=== PATIENT | female | born 1970 | race Caucasian/White ===

== ENCOUNTER 2020-12-09 06:48 | Observation (INO) | payer BC, SELFPAY ==
[2020-12-09] VITALS (18 sets, daily range): BP systolic 122–140; BP diastolic 73–87; PULSE 63–94; RESP 14–22; TEMP 36.6–37.3; O2SAT 93–99; BMI 26.6
--- NOTE | ~2020-12-09 | CT_ITS ---
EXAMINATION: CT abdomen pelvis w con DATE: 12/09/2020 08:40 INDICATION: Epigastric abdominal pain. TECHNIQUE: Computed tomography (CT) of the abdomen and pelvis was performed with 100 mL Omnipaque 350 intravenous contrast. Automated exposure control and iterative reconstruction technique were employe d. The dose-length product was 726.89 mGy-cm. COMPARISON: None. FINDINGS: The visualized portions of the lung bases demonstrate minimal atelectasis. No pleural effus ion. The heart size is normal. No pericardial effusion. The liver is normal. The gallbladder is diste nded with a gallstone in the gallbladder neck and wall thickening, consistent with acute cholecystiti s. The spleen, pancreas, adrenal glands, and kidneys are normal. There are no dilated loops of bowel. The appendix is normal. There is physiologic fluid in the pelvis. There is severe lower lumbar spond ylosis. Lumbar levoscoliosis is noted. IMPRESSION: 1. Acute cholecystitis. Reviewed, dictated and finalized at location A. IMPRESSION: 1. Acute cholecystitis.
--- NOTE | ~2020-12-09 | XR_ITS ---
EXAMINATION: XR cholangiogram surg 1st inj DATE: 12/09/2020 16:49 INDICATION: Intraoperative laparoscopic cholecystectomy TECHNIQUE: 46 fluoroscopic images of the right upper quadrant were obtained during intraoperative cho langiography performed by the surgeon. I was not present in the operating room. Fluoroscopy exposure time was 24.6 seconds. COMPARISON: None. FINDINGS: No biliary stones or stricture are identified. IMPRESSION: 1. No biliary stones or stricture identified. This was communicated to Dr. Nagy in the operating r oom at 1643 hours on 12/09/2020. Reviewed, dictated and finalized at location B. IMPRESSION: 1. No biliary stones or stricture identified. This was communicated to Dr. Jagdish melissa in the operating room at 1643 hours on 12/09/2020.
[2020-12-09 07:40] LABS: Basophils Percent Auto 0.2 % (0.2-1.2); Hematocrit 41.5 % (37.0-47.0); Hemoglobin 13.7 g/dL (12.0-15.0); Immature Granulocyte Absolute 0.07 K/mm3 (0.00-0.031); Immature Granulocyte Percent A 0.4 % (0-0.5); Lymphocytes Absolute Auto 0.79 K/mm3 (0.9-3.2); Lymphocytes Percent Auto 4.6 % (18.3-44.2); Mean Corpuscular Hemoglobin 30.6 pg (26-34); Mean Corpuscular Volume 92.6 fl (80-100); Mean Platelet Volume 10.2 fl (7.4-10.4); Monocytes Absolute Auto 0.9 K/mm3 (0.1-0.6); Neutrophils Absolute Auto 15.4 K/mm3 (1.3-6.7); Neutrophils Percent Auto 89.8 % (45.5-73.1); Platelet Count Result 385 k/mm3 (150-375); Red Blood Count 4.48 M/mm3 (4.2-5.4); Red Cell Distribution Width 13.6 % (11.5-14.5); White Blood Count 17.1 K/mm3 (4.5-10.0)
--- NOTE | 2020-12-09 07:43 | ED.NAVMDI ---
HPI - Nausea/Vomiting/Diarrhea General Chief complaint: Nausea/Vomiting/Diarrhea Stated complaint: vomiting Time Seen by Provider: 12/09/20 06:59 History of Present Illness HPI Narrative: Patient is a 50-year-old female who presents ER with nausea and vomiting. Ongoing for 24 hours. Associated with epigastric fullness and bloating. No heartburn. Denies diarrhea. Worsened by eating. No alleviating factors. Radiates to her left back on occasion. No known sick contacts. Related Data Home Medications Medication Instructions Recorded Confirmed No Home Medications 12/09/20 12/09/20 Allergies Allergy/AdvReac Type Severity Reaction Status Date / Time ibuprofen Allergy Swelling Verified 12/09/20 07:19 Review of Systems Review of Systems: All systems reviewed & are unremarkable except as noted in HPI and below Constitutional: Constitutional: Denies chills, Denies fever(s) and Denies weakness ENT: Denies nasal congestion and Denies sore throat Gastrointestinal: Gastrointestinal: Reports abdominal pain, Reports bloating, Denies constipation, Denies heartburn, Denies diarrhea, Reports nausea and Reports vomiting Genitourinary: Genitourinary: Denies dysuria, Reports flank pain and Denies urinary incontinence PMF Past Medical History Medical History (Updated 12/09/20 @ 09:36 by Jose C Yost MD) Healthy female adult Surgical History Surgical History (Updated 12/09/20 @ 07:44 by Jose C Yost MD) History of tonsillectomy Exam Narrative: Exam Narrative: GENERAL: Well-appearing, well-nourished, and in no acute distress. HEAD: Normocephalic, atraumatic. ENT: Mucous membranes moist. CHEST: Clear to auscultation. No respiratory distress. HEART: Regular rate and rhythm. Normal peripheral pulses. ABDOMEN: Soft, mild tenderness palpation right upper quadrant without guarding, nondistended, normal active bowel sounds. EXTREMITIES: Normal range of motion. No edema. SKIN: Warm, dry, no rash. NEURO: Alert and oriented x3. PSYCH: Normal mood and affect. Course Course Emergency Course: Patient informed of results and treatment plan. Admit to Dr. Nagy. N.p.o. with IV antibiotics and pain/nausea control. Vital Signs Vital signs: Vital Signs Temperature 98.7 F 12/09/20 06:55 Pulse Rate 87 12/09/20 06:55 Respiratory Rate 18 06/29/21 06:55 Blood Pressure 134/86 12/09/20 06:55 Pulse Oximetry 98 12/09/20 06:55 Temperature 98.7 F 12/09/20 06:55 Pulse Rate 93 12/09/20 08:21 Respiratory Rate 16 12/09/20 08:21 Blood Pressure 130/81 12/09/20 08:21 Pulse Oximetry 98 12/09/20 08:21 MDM - Nausea/Vomiting/Diarrhea Lab Data Result diagrams: 12/09/20 07:22 12/09/20 07:22 Labs: Lab Results 12/09/20 12/09/20 12/09/20 Range/Units 07:22 07:22 07:27 WBC 17.1 H (4.5-10.0) K/mm3 RBC 4.48 (4.2-5.4) M/mm3 Hgb 13.7 (12.0-15.0) g/dL Hct 41.5 (37.0-47.0) % MCV 92.6 (80-100) fl MCH 30.6 (26-34) pg MCHC 33.0 (32-36) g/dl RDW 13.6 (11.5-14.5) % Plt Count 385 H (150-375) k/mm3 MPV 10.2 (7.4-10.4) fl Immature Gran % (Auto) 0.4 (0-0.5) % Neut % (Auto) 89.8 H (45.5-73.1) % Lymph % (Auto) 4.6 L (18.3-44.2) % [place] % (Auto) 5.0 (2.6-8.5) % Eos % (Auto) 0.0 (0-4.4) % Baso % (Auto) 0.2 (0.2-1.2) % Lymph # (Auto) 0.79 L (0.9-3.2) K/mm3 [place] # (Auto) 0.9 H (0.1-0.6) K/mm3 Eos # (Auto) 0.0 (0-0.3) K/mm3 Baso # (Auto) 0.0 (0.0-0.1) K/mm3 Abs Immat Gran (auto) 0.07 H (0.00-0.031) K/mm3 Absolute Neuts (auto) 15.4 H (1.3-6.7) K/mm3 Absolute Nucleated RBC 0.0 (0.0-0.012) K/mm3 Nucleated RBC % 0.0 (0.0-0.2) % Sodium 140 (137-145) mmol/L Potassium 3.5 (3.4-5.0) mmol/L Chloride 104 (98-107) mmol/L Carbon Dioxide 25 (22-30) mmol/L Anion Gap 11 (8-16) mmol/L BUN 8 (7-17) mg/dL Creatinine 0.60 L (0.7-1.0) mg/dL
[2020-12-09 07:44] LABS: Alanine Aminotransferase 31 U/L (4-35); Albumin Level 4.4 g/dL (3.5-5.1); Alkaline Phosphatase 84 U/L (38-126); Anion Gap 11 mmol/L (8-16); Aspartate Amino Transferase 34 U/L (14-36); Bilirubin,Total 0.8 mg/dL (0.2-1.3); Blood Urea Nitrogen 8 mg/dL (7-17); Calcium 9.2 mg/dL (8.4-10.2); Carbon Dioxide 25 mmol/L (22-30); Chloride 104 mmol/L (98-107); Estimated CRCL calculation 102 ml/min; Estimated Glomerular Filt Rate > 60; Glucose 129 mg/dL (65-105); Lipase 223 U/L (23-300); Potassium 3.5 mmol/L (3.4-5.0); Sodium 140 mmol/L (137-145)
[2020-12-09] MEDS: SODIUM CHLORIDE 0.9% IV 1,000 ML 999 ML IV CONT (07:50)
[2020-12-09 07:56] LABS: Add Urine Microscopic? YES; Appearance Urine Cloudy (Clear); Bacteria Urine Trace /hpf; Bilirubin Urine Negative (Negative); Color Urine Amber (Yellow); Glucose Urine UA Negative (Negative); Ketones Urine Trace mg/dL (Negative); Leukocyte Esterase Ur Negative LEU/UL (Negative); Mucus Urine Heavy /lpf; Nitrate Urine Negative (Negative); Protein Urine 2+ mg/dL (Negative); Squamous Epithelial Cell Urine Many /hpf (Few); Urobilinogen Urine Negative mg/dL (<2.0)
[2020-12-09 07:58] LABS: Blood Urine Negative (Negative); Specific Grav Ur 1.031 (1.001-1.035)
[2020-12-09] MEDS: MORPHINE SULFATE (*CRX) 4 MG/ML INJ IV PUSH (10:27)
--- NOTE | 2020-12-09 11:10 | PM.IMHP ---
H&P: HPI History of Present Illness Date/Time: 12/09/20 11:10 Chief Complaint: Abdominal pain and vomiting Narrative: This is a 50-year-old female who is otherwise healthy, who presented to the ER with complaints of abdominal pain and vomiting. 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 She ate beefaroni from a can. About 1-2 hours after eating, she developed abdominal bloating and upper abdominal discomfort in the epigastric area and right upper quadrant. She then had an episode of vomiting later in the morning and decided to go home from work. Her abdominal pain progressively worsened and radiated to her mid back. She felt that her abdominal pain was worse in the upper abdomen but also radiated throughout her entire abdomen. She had another episode of vomiting and did not eat the remainder of the day. Her symptoms persisted through the night, therefore she presented to the ER today for evaluation. CT scan of the abdomen and pelvis showed gallbadder distention and wall thickening with a gallstone in the neck of the gallbladder, consistent with acute cholecystitis. Labs showed a white blood cell count of 17,100, normal LFTs, and normal lipase. Our service was consulted by the ER provider for surgical evaluation of acute cholecystitis. The patient is now seen in the ER. She reports her pain has improved with the IV Morphine that was just given to her prior to my arrival. Denies fever or chills. Reports loose stool, but normal in color. Denies any urinary complaints. No other complaints at this time. Upon further questioning, she has had similar abdominal pain on about 2-3 other occasions over the past 5-6 years that was more mild and resolved spontaneously after about 12 hours. Review of Systems Review of Systems: All systems reviewed & are unremarkable except as noted in HPI and below Constitutional: Constitutional: Reports as per HPI, Denies chills, Denies fatigue and Denies fever(s) ENT: Reports system reviewed and no additional complaints, except as documented and Reports Normal hearing present Cardiovascular: Cardiovascular: Reports no additional cardiovascular complaints, Denies chest pain and Denies leg edema Respiratory: Respiratory: Reports no additional respiratory complaints, Denies cough and Denies dyspnea Gastrointestinal: Gastrointestinal: Reports as per HPI, Reports no additional gastrointestinal complaints, Reports abdominal pain, Denies melena, Denies hematochezia, Denies coffee ground emesis, Denies constipation, Denies diarrhea, Reports loose stools, Reports nausea, Reports vomiting and Denies hematemesis Genitourinary: Genitourinary: Denies hematuria, Denies nocturia, Denies dysuria and Denies urinary urgency Musculoskeletal: Musculoskeletal: Denies abnormal gait, Denies deformity and Denies joint swelling Integumentary/Breasts: Skin/Breast: Denies wounds and Denies jaundice Neurologic: Reports system reviewed and no additional complaints, except as documented, Denies dizziness, Denies focal weakness, Denies numbness and Denies tingling Psychiatric: Psychiatric: Denies anxiety and Denies depression [facility] Past Medical History Medical History Healthy female adult Surgical History Surgical History History of tonsillectomy Family History Family History Mother Gallbladder disease Social History Social History Social History: She wishes to be a full code. She designates her , Don, to be her medical decision-maker if needed. Smoking packs per day: 1 Smoking cigarettes per day: 20.0 Years smoked: 20 Smoking pack-years: 20.00 Smoking status: Former smoker Tobacco type: cigarettes Second hand tobacco smoke exposure: No Alcohol use d
[2020-12-09] MEDS: SODIUM CHLORIDE 0.9% IV 1,000 ML 125 ML IV CONT (11:16)
--- NOTE | 2020-12-09 13:45 | PC.NURSE ---
To OR per bed, IV none. Report given to RN.
--- NOTE | 2020-12-09 14:32 | WPDANESEPPF ---
Anes - Initial Pre Proc Eval Procedure: Operation Date: 12/09/20 15:00 Proposed Procedures p Laparoscopic Cholecystectomy,Possible Intraoperative Cholangiograms,Possible Open - Thaddeus Nagy MD Date/Time: 12/09/20 14:32 Surgeon: Thaddeus Ngay MD Pre Op Diagnosis: cholecystitis Patient Data Age: 50 Gender: F Height: 1.75 m Weight: 82 kg Last Vital Signs Temp 37.2 C 12/09/20 11:00 Pulse 73 12/09/20 11:00 Resp 18 12/09/20 11:00 BP 140/87 12/09/20 11:00 Pulse Ox 95 12/09/20 11:00 Allergies Allergy/AdvReac Type Severity Reaction Status Date / Time ibuprofen Allergy Swelling Verified 12/09/20 11:04 Home Medications Medication Instructions Recorded Confirmed Type No Home Medications 12/09/20 12/09/20 History Laboratory Tests 12/09/20 12/09/20 12/09/20 07:22 07:22 07:27 WBC 17.1 K/mm3 H K/mm3 (4.5-10.0) RBC 4.48 M/mm3 M/mm3 (4.2-5.4) Hgb 13.7 g/dL g/dL (12.0-15.0) Hct 41.5 % % (37.0-47.0) MCV 92.6 fl fl (80-100) MCH 30.6 pg pg (26-34) MCHC 33.0 g/dl g/dl (32-36) RDW 13.6 % % (11.5-14.5) Plt Count 385 k/mm3 H k/mm3 (150-375) MPV 10.2 fl fl (7.4-10.4) Immature Gran % (Auto) 0.4 % % (0-0.5) Neut % (Auto) 89.8 % H % (45.5-73.1) Lymph % (Auto) 4.6 % L % (18.3-44.2) [place] % (Auto) 5.0 % % (2.6-8.5) Eos % (Auto) 0.0 % % (0-4.4) Baso % (Auto) 0.2 % % (0.2-1.2) Lymph # (Auto) 0.79 K/mm3 L K/mm3 (0.9-3.2) [place] # (Auto) 0.9 K/mm3 H K/mm3 (0.1-0.6) Eos # (Auto) 0.0 K/mm3 K/mm3 (0-0.3) Baso # (Auto) 0.0 K/mm3 K/mm3 (0.0-0.1) Abs Immat Gran (auto) 0.07 K/mm3 H K/mm3 (0.00-0.031) Absolute Neuts (auto) 15.4 K/mm3 H K/mm3 (1.3-6.7) Absolute Nucleated RBC 0.0 K/mm3 K/mm3 (0.0-0.012) Nucleated RBC % 0.0 % % (0.0-0.2) Sodium 140 mmol/L mmol/L (137-145) Potassium 3.5 mmol/L mmol/L (3.4-5.0) Chloride 104 mmol/L mmol/L (98-107) Carbon Dioxide 25 mmol/L mmol/L (22-30) Anion Gap 11 mmol/L mmol/L (8-16) BUN 8 mg/dL mg/dL (7-17) Creatinine 0.60 mg/dL L mg/dL (0.7-1.0) Estim Creat Clear Calc 102 ml/min ml/min Estimated GFR > 60 (59 - ) Glucose 129 mg/dL H mg/dL (65-105) Calcium 9.2 mg/dL mg/dL (8.4-10.2) Total Bilirubin 0.8 mg/dL mg/dL (0.2-1.3) AST 34 U/L U/L (14-36) ALT 31 U/L U/L (4-35) Alkaline Phosphatase 84 U/L U/L (38-126) Total Protein 8.0 g/dL g/dL (6.3-8.2) Albumin 4.4 g/dL g/dL (3.5-5.1) Lipase 223 U/L U/L (23-300) Urine Color Tami (Yellow) Urine Appearance Cloudy H (Clear) Urine pH 5.0 (5.0-9.0) Ur Specific [place] 1.031 (1.001-1.035) Urine Protein 2+ mg/dL H mg/dL (Negative) Urine Glucose (UA) Negative mg/dL mg/dL (Negative) Urine Ketones Trace mg/dL mg/dL (Negative) Ur Blood (Man) Negative (Negative) Urine Nitrate Negative (Negative) Urine Bilirubin Negative (Negative) Urine Urobilinogen Negative mg/dL mg/dL (<2.0) Leukocyte Esterase Rfl Negative HOWARD/UL HOWARD/UL (Negative) Urine RBC 3-5 /hpf H /hpf (0-2) Urine WBC 7-9 /hpf H /hpf Ur Squamous Epith Cells Many /hpf H /hpf (Few) Urine Bacteria Trace /hpf /hpf Urine Mucus Heavy /lpf H /lpf Blood Type Antibody Screen 12/09/20 12:25 WBC RBC Hgb Hct MCV MCH MCHC RDW Plt Count MPV Immature Gran % (Auto) Neut % (Auto) Lymph % (Auto) M
[2020-12-09] MEDS: LACTATED RINGERS 1,000 ML 30 ML IV CONT ×2 (14:44→17:46)
[2020-12-09] MEDS: fentaNYL CITRATE INJ (*CRX) 100 MCG/2 ML VIAL 25 MCG IV PUSH ×3 (14:44→18:24)
--- NOTE | 2020-12-09 14:52 | WPDHPUPDATE1 ---
History and Physical Update Update Date/Time: 12/09/20 14:52 History and Physical has been reviewed, including an updated exam of the patient. There are NO changes in the patient's condition. Risks, benefits, and alternatives have been discussed and questions answered. Patient agrees to proceed with procedure.
[2020-12-09] MEDS: BUPIVACAINE/EPINEPHRINE 0.5% 10 ML VIAL 30 ML INFILTRATE (15:57)
--- NOTE | 2020-12-09 15:59 | SUR.OPER ---
micro specimen delivered to [facility] by maicol patel.
--- NOTE | 2020-12-09 17:53 | W.PM.PROC2 ---
Procedure Note - Detailed Date of Procedure 12/09/20 Pre-op Diagnosis Acute cholecystitis with Cholelithiasis Post-op Diagnosis same Procedure Performed Laparoscopic cholecystectomy with intraoperative cholangiogram Surgeon Thaddeus Nagy MD Budget Clerk Bautista ZHAO.OR Marketing Coordinator Anesthesia general Indications patient had elevated white count, right upper quadrant pain and a CT scan showing significant inflammation and gallbladder wall thickening consistent with cholecystitis. There were gallstones noted also. Findings Patient he usually enlarged gallbladder with a large 2.5 cm stone within it. There was acute edema in the wall the gallbladder and between the gallbladder were wall and the bed of the liver. Cholangiogram showed a cystic duct paralleling the common duct for 1 -2 cm with no filling defects and good flow into the duodenum. Description of Procedure Procedure Details: Patient was seen preoperatively in the holding area and risks, benefits and alternatives confirmed. Patient was taken to the operating room and general anesthesia was induced. A time out was then preformed with the surgery team confirming patient and site of surgery. The abdomen was prepped and draped in the usual sterile fashion. Incision was made just below the umbilicus. Two stay sutures of O- Vicryl were used to elevate the mid-line fascia beneath the umbilicus and a small incision was made under direct vision. The peritoneum was entered. The 12 mm Arshad cannula was introduced under direct vision. First under low flow and then under high flow the abdomen was insufflated with carbon dioxide never exceeding a pressure of 14. Three 5 mm trocars were then introduced under direct vision. The following trocars were introduced under direct vision: a 5 mm in the epigastrium and two 5 mm trocars along the right costal margin. There were no significant adhesions to the gallbladder, However the gallbladder was massively distended and therefore a trocar was used to aspirate the gallbladder after the ports listed below were placed. Approximately 20 cc of fluid was sent from the gallbladder for Gram stain and C& S. The remainder the fluid could be was aspirated with suction this allowed us to grasp the gallbladder well. The gall bladder was the grasped at it's apex on the site where we aspirated it.and the cystic duct and artery were dissected free and I carefully identified a window of safety with only two other structures in the area being the cystic duct and the cystic artery. However posterior to this going toward liver there was significant soft tissue this still was not clear to the gallbladder bed. Therefore order to be safe I decided to go ahead and do a cholangiogram. I then used a 5 mm endo-clip health unit coordinator to place 2 clips on the patient's side 1 on the gallbladder side on the cystic artery and just 1 clip on the gallbladder side of the cystic duct. Following this a 14 gauge angiocath was used to cannulate the abdominal wall and pass a cholangiocath catheter through into the abdomen having been flushed with saline. A small hole was made in the cystic duct with endoshears and a cholagio-cath introduced. This was held in place with a single 5 mm clip. A cholangiogram was obtained revealing free flow into the cystic duct, common bile duct, common hepatic, right and left hepatic ducts with free flow into the duodenum with no filling defects in the intra nor extrahepatic biliary tree and no dilation. The catheter was removed and the cystic duct was clipped with a 5 mm endoclip-health unit coordinator placing 2 clips on the patient's side of the cystic duct. The cystic duct was then transected. The cystic artery was also transected at this point. Following this I very carefully dissected against the back wall the gallbladder taking it up off the underlying structures until we came to the gallbladder bed. One small artery was identified and clipped as we came through this tissue. I suspect this
--- NOTE | 2020-12-09 18:50 | SUR.PHASEI ---
1838; REPORT FAXED TO FLOOR
[2020-12-09] MEDS: SENNA/DOCUSATE SODIUM TABLET 2 TAB PO (20:05)
[2020-12-09] MEDS: HYDROcodone/acetaminophen (*CRX) 7.5-325 MG TABLET 1 TAB PO (23:26)
[2020-12-10] VITALS: BP 118/67; PULSE 71; RESP 16; TEMP 37; O2SAT 94
[2020-12-10 04:00] VITALS: BP 111/62; PULSE 84; RESP 18; TEMP 37.3; O2SAT 95
[2020-12-10] MEDS: MORPHINE SULFATE (*CRX) 4 MG/ML INJ IV PUSH (04:24)
[2020-12-10] MEDS: HYDROcodone/acetaminophen (*CRX) 7.5-325 MG TABLET 1 TAB PO (05:25)
[2020-12-10 06:20] LABS: Hematocrit 35.5 % (37.0-47.0); Hemoglobin 11.6 g/dL (12.0-15.0); Mean Corpuscular HGB Conc 32.7 g/dl (32-36); Mean Corpuscular Hemoglobin 30.5 pg (26-34); Mean Corpuscular Volume 93.4 fl (80-100); Mean Platelet Volume 10.2 fl (7.4-10.4); Platelet Count Result 313 k/mm3 (150-375); Red Cell Distribution Width 13.9 % (11.5-14.5); White Blood Count 12.7 K/mm3 (4.5-10.0)
[2020-12-10 06:29] LABS: Alanine Aminotransferase 53 U/L (4-35); Albumin Level 3.4 g/dL (3.5-5.1); Alkaline Phosphatase 62 U/L (38-126); Anion Gap 4 mmol/L (8-16); Aspartate Amino Transferase 57 U/L (14-36); Bilirubin,Total 0.6 mg/dL (0.2-1.3); Blood Urea Nitrogen 7 mg/dL (7-17); Calcium 8.4 mg/dL (8.4-10.2); Carbon Dioxide 29 mmol/L (22-30); Chloride 105 mmol/L (98-107); Estimated CRCL calculation 88 ml/min; Estimated Glomerular Filt Rate > 60; Glucose 118 mg/dL (65-105); Potassium 3.9 mmol/L (3.4-5.0); Sodium 138 mmol/L (137-145)
--- NOTE | 2020-12-10 07:40 | WPDANESPN ---
Anes - Prog Note Post-Op Date/Time: 12/10/20 07:40 Cardiovascular status: normal Respiratory status: normal Airway patency: baseline Mental status: baseline Post-Op hydration status: normal Vital Signs: Last Vital Signs Temp 37.3 C 12/10/20 04:00 Pulse 84 12/10/20 04:00 Resp 18 12/10/20 04:00 BP 111/62 12/10/20 04:00 Pulse Ox 95 12/10/20 04:00 Pain Score (VAS): 3 I/O: Intake & Output 12/09/20 12/09/20 12/10/20 15:59 23:59 07:59 Intake Total 1050 750 250 Balance 1050 750 250 Laboratory Tests 12/10/20 06:06 12/10/20 06:06 12/09/20 12/09/20 12/09/20 07:22 07:22 07:27 WBC 17.1 H RBC 4.48 Hgb 13.7 Hct 41.5 MCV 92.6 MCH 30.6 MCHC 33.0 RDW 13.6 Plt Count 385 H MPV 10.2 Immature Gran % (Auto) 0.4 Neut % (Auto) 89.8 H Lymph % (Auto) 4.6 L [place] % (Auto) 5.0 Eos % (Auto) 0.0 Baso % (Auto) 0.2 Lymph # (Auto) 0.79 L [place] # (Auto) 0.9 H Eos # (Auto) 0.0 Baso # (Auto) 0.0 Abs Immat Gran (auto) 0.07 H Absolute Neuts (auto) 15.4 H Absolute Nucleated RBC 0.0 Nucleated RBC % 0.0 Sodium 140 Potassium 3.5 Chloride 104 Carbon Dioxide 25 Anion Gap 11 BUN 8 Creatinine 0.60 L Estim Creat Clear Calc 102 Estimated GFR > 60 Glucose 129 H Calcium 9.2 Total Bilirubin 0.8 AST 34 ALT 31 Alkaline Phosphatase 84 Total Protein 8.0 Albumin 4.4 Lipase 223 Urine Color Tami Urine Appearance Cloudy H Urine pH 5.0 Ur Specific [place] 1.031 Urine Protein 2+ H Urine Glucose (UA) Negative Urine Ketones Trace Ur Blood (Man) Negative Urine Nitrate Negative Urine Bilirubin Negative Urine Urobilinogen Negative Leukocyte Esterase Rfl Negative Urine RBC 3-5 H Urine WBC 7-9 H Ur Squamous Epith Cells Many H Urine Bacteria Trace Urine Mucus Heavy H Blood Type Antibody Screen 12/09/20 12/10/20 12/10/20 12:25 06:06 06:06 WBC 12.7 H RBC 3.80 L Hgb 11.6 L Hct 35.5 L MCV 93.4 MCH 30.5 MCHC 32.7 RDW 13.9 Plt Count 313 MPV 10.2 Immature Gran % (Auto) Neut % (Auto) Lymph % (Auto) [place] % (Auto) Eos % (Auto) Baso % (Auto) Lymph # (Auto) [place] # (Auto) Eos # (Auto) Baso # (Auto) Abs Immat Gran (auto) Absolute Neuts (auto) Absolute Nucleated RBC Nucleated RBC % Sodium 138 Potassium 3.9 Chloride 105 Carbon Dioxide 29 Anion Gap 4 L BUN 7 Creatinine 0.70 Estim Creat Clear Calc 88 Estimated GFR > 60 Glucose 118 H Calcium 8.4 Total Bilirubin 0.6 AST 57 H ALT 53 H Alkaline Phosphatase 62 Total Protein 6.0 L Albumin 3.4 L Lipase Urine Color Urine Appearance Urine pH Ur Specific [place] Urine Protein Urine Glucose (UA) Urine Ketones Ur Blood (Man) Urine Nitrate Urine Bilirubin Urine Urobilinogen Leukocyte Esterase Rfl Urine RBC Urine WBC Ur Squamous Epith Cells Urine Bacteria Urine Mucus Blood Type O Positive Antibody Screen Negative Post-procedural complaints: none Patient Feedback: Patient satisfied with anesthetic care.
[2020-12-10 08:00] VITALS: BP 102/55; PULSE 78; RESP 20; TEMP 37.1; O2SAT 93
--- NOTE | 2020-12-10 09:28 | PM.DS ---
DS: Admitting Diagnosis Admitting Diagnosis Admitting Diagnosis: acute cholecystitis with cholelithiasis DS: Discharge Diagnosis Discharge Diagnosis (1) Acute cholecystitis: Onset Date: ~11/2020 Code(s): K81.0 - Acute cholecystitis Status: Acute Assessment and Plan: this was the main reason for the admission. CT scan showed well the problem. The patient was willing to proceed with surgical intervention. She had a fairly uneventful laparoscopic cholecystectomy with intraoperative cholangiogram. She was doing well on postop day 1. DS: Summary Hospital Course Reason for hospitalization: acute cholecystitis with cholelithiasis Hospital Course: patient had a rather uneventful hospital course. She was found in the ER to have acute cholecystitis with cholelithiasis by labs and CT scan. She was a good candidate for surgical intervention. She had this on 12/09/2020. Laparoscopic cholecystectomy with intraoperative cholangiogram what well. She had a very large distended gallbladder with signs of acute cholecystitis. Cultures from the bile fluid are pending. Palpable 2.5 cm stone within the gallbladder upon removal of the gallbladder from the abdomen. On postop day 1 she was feeling well tolerating liquids and up and about when I checked her this morning. Status at Discharge Cognitive/behavioral status at discharge: None Functional status at discharge: independent ambulation Overall status at discharge: patient is not back to baseline ( patient is moving slightly slowly but a should be back to normal within 2-3 days.) Time Spent with Patient Time attestation: Total time spent providing and/or coordinating discharge services: Time spent: Less than 30 minutes Specific discharge activities: See home going instructions on the discharge summary. Exam Const: General: cooperative, no acute distress, alert and awake Orientation/consciousness: patient oriented x3 HENMT: Mouth: Yes moist mucous membranes Neck: Neck: normal visual inspection Chest: Chest palpation & inspection: normal inspection of the chest Resp: Effort & Inspection: normal respiratory effort Auscultation: clear to auscultation bilaterally Cardio: Jugular venous distension: no JVD Rate: regular rate Rhythm: regular rhythm GI: Inspection: incision ( Clean and dry with surgical glue in place.) Auscultation: normal bowel sounds Rectal Exam: deferred Neuro: General: patient oriented x3 and moves all extremities Speech: normal speech Extrem: General: normal exam except as noted Psych: Mental Status: mental status grossly normal Speech and movement: Normal speech and movement present Affect: normal affect Thought content: Yes Normal thought content present DS: Data Data Completed and Pending Pending studies at discharge: Pending at discharge 12/09/20 17:06 Surgical [PTH] Routine Labs on day of discharge: Labs from last 24 hours 12/10/20 12/10/20 12/09/20 06:06 06:06 12:25 WBC 12.7 H RBC 3.80 L Hgb 11.6 L Hct 35.5 L MCV 93.4 MCH 30.5 MCHC 32.7 RDW 13.9 Plt Count 313 MPV 10.2 Sodium 138 Potassium 3.9 Chloride 105 Carbon Dioxide 29 Anion Gap 4 L BUN 7 Creatinine 0.70 Estim Creat Clear Calc 88 Estimated GFR > 60 Glucose 118 H Calcium 8.4 Total Bilirubin 0.6 AST 57 H ALT 53 H Alkaline Phosphatase 62 Total Protein 6.0 L Albumin 3.4 L Blood Type O Positive Antibody Screen Negative Discharge Plan Discharge Attending physician on discharge: Thaddeus Nagy Consulting providers: Sivakumar Lua Discharging Clinician: Thaddeus Nagy Anticipated Discharge Date/Time: 12/10/20 09:26 Patient Disposition: Home, Self-Care Activity: october shower Diet: low fat Wound Care Instructions: follow printed instructions Discharge Instructions: DISCHARGE INSTRUCTION SHEET FOR HERNIA AND LAP CHOL
[2020-12-10 10:36] VITALS: O2SAT 91
== END 2020-12-10 11:30 | disposition home or self-care (01) ==
LOC: ANHED 09:36 → ANH3MEDSUR 10:16
PROVIDERS: Admitting Provider Surgery; Emergency Provider Emergency Medicine; Visit Provider Surgery
PROC: 0FT44ZZ Resection of Gallbladder, Percutaneous Endoscopic Approach (ICD-10-PCS; CPT 47562; principal; 2020-12-09 15:00)
DX: K80.12 Calculus of gallbladder with acute and chronic cholecystitis without obstruction (principal); Z87.891 Personal history of nicotine dependence
CPT/HCPCS: 47563; 36415; 74177; 74300; 80053; 81001; 81025; 83690; 85025; 85027; 86850; 86900; 86901; 87070; 87075; 87086; 87088; 87205; 88304; 96361; 96365; 96375; 99285; A9270; G0378; J0131; J0330; J1100; J2250; J2270; J2405; J2543; J2704; J2710; J3010; J7030; J7120; Q9966; Q9967

== ENCOUNTER 2024-09-21 14:49 | Emergency (ER) | payer BC, SELFPAY ==
--- NOTE | ~2024-09-21 | CT_ITS ---
EXAMINATION: CT abdomen pelvis w con DATE: 09/21/2024 17:34 INDICATION: Rectal mass TECHNIQUE: Computed tomography (CT) of the abdomen and pelvis was performed with 100 mL Omnipaque-350 intravenous contrast. Automated exposure control and iterative reconstruction technique were employe d. The dose-length product was 446.82 mGy-cm. COMPARISON: 12/09/2020 FINDINGS: There are 3 nodules measuring up to 5 mm in the both the left and right lower lobes which are without significant change since 12/09/2020 consistent with old granulomatous disease.. Heart size is normal. No pericardial effusion. Cholecystectomy clips the gallbladder fossa. Liver, spleen, pancreas, bilat eral adrenal glands and kidneys are normal. Thickening of the soft tissues at the anus which is new s britton the prior study. The rectum and more proximal bowels including the appendix are normal. Bladder, anteverted uterus and bilateral adnexa are unremarkable. No free intraperitoneal gas or fluid. No pa thologically enlarged abdominal or pelvic lymphadenopathy. Mild lumbar levoscoliosis with mild to mod erate lumbar and severe lumbosacral spondylosis. IMPRESSION: 1. Thickened soft tissue in the region of the anus which could be inflammatory or malignant in etiolo gy. Correlate with physical exam and/or anoscopy. Otherwise unremarkable abdomen and pelvis with no e vident acute intra-abdominal/pelvic process or metastatic disease. Reviewed, dictated and finalized at location A. IMPRESSION: 1. Thickened soft tissue in the region of the anus which could be inflammatory or malignant in etiology. Correlate with physical exam and/or anoscopy. Otherwi se unremarkable abdomen and pelvis with no evident acute intra-abdominal/pelvic process or metastatic disease.
[2024-09-21 14:57] VITALS: BP 136/60; PULSE 90; RESP 16; TEMP 36.4; O2SAT 100
--- NOTE | 2024-09-21 15:46 | ED_ITS ---
HPI - General Adult General Chief complaint: Unspecified Stated complaint: Bleeding hemorrhoids Time Seen by Provider: 09/21/24 15:34 Source: patient and family () Mode of arrival: ambulatory Limitations: no limitations History of Present Illness HPI narrative: Patient presents with complaint of bleeding which she believes is due to hemorrhoids. She states that she 1st told her primary care provider, Bria Valenzuela about this in July. Technically, she states she has not actually met this provider yet. She notes that she has been losing from her rectum such that she has to wear maxi pad. She has also been constipated. She states that it used to be painless but has not become painful. She describes the pain as 8/10 in severity. She has never had a colonoscopy but did have colon cancer testing by [facility] few years ago because she was otherwise low risk. She denies any weight loss or fevers. She has been having night sweats which she attributes to menopause. No recent anal receptive intercourse. Related Data Allergies Allergy/AdvReac Type Severity Reaction Status Date / Time ibuprofen Allergy Swelling Verified 09/21/24 14:50 [facility] Past Medical History Medical History (Updated 09/22/24 @ 00:01 by Dell Ramos) Overweight Healthy female adult Surgical History Surgical History Hx of cholecystectomy laparoscopic cholecystectomy on 12/09/2020 History of tonsillectomy Family History Family History Mother Gallbladder disease Social History Social History Social History: She wishes to be a full code. She designates her , Sammy, to be her medical decision-maker if needed. Smoking packs per day: 1 Smoking cigarettes per day: 20.0 Years smoked: 20 Smoking pack-years: 20.00 Smoking status: Former smoker Tobacco type: cigarettes Second hand tobacco smoke exposure: No Alcohol use details: Very rarely, only on occasion. Substance use: never Living arrangements: with family Additional living arrangements comments: With her . She has 6 children (some of which are through marriage) and 8 grandchildren. Occupation/Education: occupation Additional occupation/education comments: Works with [employer] for [employer]. Gender identity (if verbalized by the patient): Female Sexual Orientation (if Verbalized by the Patient): Straight or Heterosexual Spiritual care concerns: No Exam 2 Narrative: GENERAL: Well-appearing, well-nourished, and in no acute distress. HEAD: Normocephalic, atraumatic. EYES: Non injected, non icteric ENT: Nares clear, no rhinorrhea or epistaxis. NECK: Supple. CHEST: Speaking in full sentences. No respiratory distress. HEART: Regular rate and rhythm. . ABDOMEN: Soft, nondistended. ZULMA: Attempted to perform a digital rectal exam however patient has in for a large protruding fungating anal mass approximately 6 cm x 4 cm x 2 cm, the right side of which is adherent to her buttock. It is firm. Unable to perform digital rectal exam due to the size of this mass. There is a small area of dried/clotted blood. EXTREMITIES: Normal range of motion. No lower extremity edema. SKIN: Warm, dry, no rash. NEURO: No focal deficits. Alert and oriented x3. PSYCH: Normal mood and affect. Course Vital Signs Vital signs: Vital Signs Temperature 97.5 F L 09/21/24 14:57 Pulse Rate 90 09/21/24 14:57 Respiratory Rate 16 09/21/24 14:57 Blood Pressure 136/60 09/21/24 14:57 Pulse Oximetry 100 09/21/24 14:57 Temperature 99.4 F 09/21/24 20:11 Pulse Rate 92 09/21/24 20:11 Respiratory Rate 20 09/21/24 20:11 Blood Pressure 138/74 09/21/24 20:11 Pulse Oximetry 100 09/21/24 20:11 Medical Decision Making [facility] Narrative Medical decision making narrative: Exceedingly pleasant 53-year-old female presents what she believed was bleeding from hemorrhoids. She states that this has been going on since July but seems to have gotten worse the past 1-2 weeks. In the emergency department they are afebrile with vital signs within normal limits. Mild leukocytosis. Normocytic anemia which although have not had labs in the past 4 years, had previously been identified. Patient also has a thrombocytosis that had been appreciated previously and resolved although is mild. Upon physical exam, it is apparent that patient's symptoms are not attributed to hemorrhoids but rather she has a very large protruding anal mass, not consistent with rectal prolapse. This does appear to be cancerous. Discussed with Dr Bruner who confirms it looks like anal cancer and Needs biopsied and MRI of pelvis and lymph nodes for staging and / or refer to [facility]. Patient has never received care at any other hospital system, would prefer [facility] given her father in law also received colon cancer care through them. Unable to contact colorectal clinic given after hours on Tuesday. I did attempt to call [facility] transfer line to facilitate follow-up care as best as possible. Per academic success coordinator, Fellow from [facility] can't give advice. Noted that Imaging is in chart. [facility] will need to scope for tissue diagnosis. Can call clinic ([phone]) with tissue diagnosis information or to refer to correct place. Eventually MRI and PET scan. Can contact [facility] ([phone]) endoscopy/colonoscopy/ GI motility. Also work out of [facility] [place] so sometimes that location. Discussed this with the patient verifies understanding. Patient also provided contact information for [facility] specialist or [facility] general surgeon on-call, either of which could also perform the scope/biopsy for pathology and tissue diagnosis. Patient provided a disc of the images from today. Advised that she call any of the 3 locations on Tuesday morning to see where she can get in fastest for tissue biopsy. Patient is tearful but appropriate, verifies understanding of the plan. As patient is being discharged, she does ask the nurse if it is okay for her to take a stool softener and she can receive prescription for Zofran. Did not reprint the discharge packet but I did inform the nurse that I would do both. Prescriptions were given for a complete bowel regimen in addition to oral disintegrating ondansetron. Differential Diagnosis Differential Diagnosis: Internal hemorrhoids, external hemorrhoids, anal rectal fissure, perianal/anorectal abscess, malignancy, and rectal prolapse Vital Signs Vital Signs: Vital Signs Temperature 97.5 F L 09/21/24 14:57 Pulse Rate 90 09/21/24 14:57 Respiratory Rate 16 09/21/24 14:57 Blood Pressure 136/60 09/21/24 14:57 Pulse Oximetry 100 09/21/24 14:57 Temperature 99.4 F 09/21/24 20:11 Pulse Rate 92 09/21/24 20:11 Respiratory Rate 20 09/21/24 20:11 Blood Pressure 138/74 04/11/25 20:11 Pulse Oximetry 100 09/21/24 20:11 Lab Data Lab results reviewed: Yes I reviewed the patient's lab results. Lab results narrative: Normal renal function. No marked electrolyte abnormalities. 09/21/24 16:03 09/21/24 16:03 Labs: Lab Results 09/21/24 Range/Units 16:03 WBC 10.2 H (4.5-10.0) K/mm3 RBC 3.43 L (4.2-5.4) M/mm3 Hgb 10.8 L (12.0-15.0) g/dL Hct 33.8 L (37.0-47.0) % MCV 98.5 (80-100) fl MCH 31.5 (26-34) pg MCHC 32.0 (32-36) g/dl RDW 13.7 (11.5-14.5) % Plt Count 452 H (150-375) k/mm3 MPV 9.4 (7.4-10.4) fl Immature Gran % (Auto) 0.4 (0-0.5) % Neut % (Auto) 77.3 H (45.5-73.1) % Lymph % (Auto) 12.6 L (18.3-44.2) % [place] % (Auto) 8.0 (2.6-8.5) % Eos % (Auto) 1.1 (0-4.4) % Baso % (Auto) 0.6 (0.2-1.2) % Lymph # (Auto) 1.29 (0.9-3.2) K/mm3 [place] # (Auto) 0.8 H (0.1-0.6) K/mm3 Eos # (Auto) 0.1 (0-0.3) K/mm3 Baso # (Auto) 0.1 (0.0-0.1) K/mm3 Abs Immat Gran (auto) 0.04 H (0.00-0.031) K/mm3 Absolute Neuts (auto) 7.9 H (1.3-6.7) K/mm3 Absolute Nucleated RBC 0.000 (0.0-0.012) K/mm3 Nucleated RBC % 0.0 (0.0-0.2) % PT 13.8 (11.1-14.7) Seconds INR 1.0 APTT 30.6 (22.3-36.8) Seconds Sodium 139 (137-145) mmol/L Potassium 3.8 (3.4-5.0) mmol/L Chloride 101 (98-107) mmol/L Carbon Dioxide 26 (22-30) mmol/L Anion Gap 12 (4-12) mmol/L BUN 8 (7-17) mg/dL Creatinine 0.67 L (0.7-1.0) mg/dL Estim Creat Clear Calc 89 ml/min Estimated GFR > 60 (59 - ) Glucose 109 (65-110) mg/dL Lactic Acid 1.0 (0.7-2.0) mmol/L Calcium 9.2 (8.4-10.2) mg/dL Total Bilirubin 0.4 (0.2-1.3) mg/dL AST 26 (14-36) U/L ALT 25 (6-35) U/L Alkaline Phosphatase 125 (38-126) U/L Total Protein 8.0 (6.3-8.2) g/dL Albumin 4.2 (3.5-5.1) g/dL Imaging Data Radiologist's impression: Impressions Abdomen/Pelvis CT 09/21/24 17:41 IMPRESSION: 1. Thickened soft tissue in the region of the anus which could be inflammatory or malignant in etiology. Correlate with physical exam and/or anoscopy. Otherwise unremarkable abdomen and pelvis with no evident acute intra- abdominal/pelvic process or metastatic disease. Discharge Plan Discharge Clinical Impression: Thrombocytosis, Normocytic anemia, Mass of anus Patient Disposition: Home Condition: Stable Instructions: Antibiotic Form, Rectal Bleeding (ED), Anemia (ED), Rectal Pain (ED) Additional Instructions: You are being given a disc of your CT images from today. The colorectal surgery fellow at [facility] said [facility] will need to perform a scope (anoscopy/colonoscopy) for tissue diagnosis. Can contact [facility] ([phone]) endoscopy/colonoscopy/ GI motility. They also work out of [facility] so sometimes that location is used. Alternatively, you can contact the GI doctor OR the general surgeon below through [facility], both of whom should be able to perform this. Once you have that, you can call the colorectal clinic clinic at [facility] ([phone]) with tissue diagnosis information so they can schedule you or to refer to correct place. Eventually you will need an MRI and PET scan. If there are any issues, your PCP should be able to help coordinate. Return to the ED with any new/worsening/unmanaged symptoms. Acetaminophen/Tylenol (maximum 4000 mg per day) is safe to take for pain relief. Patient Language: Danish Prescriptions: New acetaminophen 500 mg capsule 1,000 mg PO Q6H PRN (Reason: pain) Qty: 30 0RF ondansetron 4 mg tablet,disintegrating 4 mg PO Q8H PRN (Reason: nausea and vomiting) Qty: 7 0RF polyethylene glycol 3350 [Miralax] 17 gram/dose powder 17 g PO DAILY Qty: 119 0RF psyllium husk [Metamucil] 0.4 gram capsule 0.4 g PO DAILY Qty: 30 0RF magnesium citrate Solution 150 ml PO DAILY PRN (Reason: constipation) Qty: 296 0RF Follow-up/Referrals: Dona,BETTY Terry [Primary Care Provider] - Dandy Kelly MD [Physician] - (General surgery) PHYSICIAN,HANDLE SEWER [Non-Staff] - Richard Bruner MD [Physician] - (Gastroenterology) Stand Alone Forms: Work/School Release IP Time of Disposition: 20:19
[2024-09-21 16:15] LABS: Basophils Absolute Auto 0.1 K/mm3 (0.0-0.1); Basophils Percent Auto 0.6 % (0.2-1.2); Eosinophils Absolute Auto 0.1 K/mm3 (0-0.3); Eosinophils Percent Auto 1.1 % (0-4.4); Hematocrit 33.8 % (37.0-47.0); Hemoglobin 10.8 g/dL (12.0-15.0); Immature Granulocyte Absolute 0.04 K/mm3 (0.00-0.031); Immature Granulocyte Percent A 0.4 % (0-0.5); Lymphocytes Absolute Auto 1.29 K/mm3 (0.9-3.2); Lymphocytes Percent Auto 12.6 % (18.3-44.2); Mean Corpuscular Hemoglobin 31.5 pg (26-34); Mean Corpuscular Volume 98.5 fl (80-100); Mean Platelet Volume 9.4 fl (7.4-10.4); Monocytes Absolute Auto 0.8 K/mm3 (0.1-0.6); Neutrophils Absolute Auto 7.9 K/mm3 (1.3-6.7); Neutrophils Percent Auto 77.3 % (45.5-73.1); Platelet Count Result 452 k/mm3 (150-375); Red Blood Count 3.43 M/mm3 (4.2-5.4); Red Cell Distribution Width 13.7 % (11.5-14.5); White Blood Count 10.2 K/mm3 (4.5-10.0)
[2024-09-21 16:26] LABS: Prothrombin Time 13.8 Seconds (11.1-14.7)
[2024-09-21 16:27] LABS: Partial Thromboplastin Time 30.6 Seconds (22.3-36.8)
[2024-09-21] MEDS: MORPHINE SULFATE (*CRX) 4 MG/ML INJ IV PUSH ×2 (16:29→20:08)
[2024-09-21 16:30] LABS: Alanine Aminotransferase 25 U/L (6-35); Albumin Level 4.2 g/dL (3.5-5.1); Alkaline Phosphatase 125 U/L (38-126); Anion Gap 12 mmol/L (4-12); Aspartate Amino Transferase 26 U/L (14-36); Bilirubin,Total 0.4 mg/dL (0.2-1.3); Blood Urea Nitrogen 8 mg/dL (7-17); Calcium 9.2 mg/dL (8.4-10.2); Carbon Dioxide 26 mmol/L (22-30); Chloride 101 mmol/L (98-107); Estimated CRCL calculation 89 ml/min; Estimated Glomerular Filt Rate > 60; Glucose 109 mg/dL (65-110); Potassium 3.8 mmol/L (3.4-5.0); Sodium 139 mmol/L (137-145)
[2024-09-21 18:26] VITALS: BP 133/73; PULSE 78; RESP 18; O2SAT 100
[2024-09-21 20:11] VITALS: BP 138/74; PULSE 92; RESP 20; TEMP 37.4; O2SAT 100
== END 2024-09-21 20:52 | disposition home or self-care (01) ==
PROVIDERS: Emergency Provider Student in an Organized Health Care Education/Training Program; PCP Physician Assistant
DX: K62.89 Other specified diseases of anus and rectum (principal); D75.839 Thrombocytosis, unspecified; D64.9 Anemia, unspecified; Z87.891 Personal history of nicotine dependence; Z90.49 Acquired absence of other specified parts of digestive tract
CPT/HCPCS: 36415; 74177; 80053; 83605; 85025; 85610; 85730; 96374; 96376; 99284; J2270; Q9967